=== PATIENT | female | born 1930 | race Caucasian/White ===

== ENCOUNTER 2016-11-07 13:08 | Emergency (ER) | payer OTHER, BC ==
[~2016-11-07] VITALS: Ht 172.7 cm; Wt 93.1 kg
[~2016-11-07 13:08] MED LIST: ADVAIR 250/501 DISK IH; ALBUTEROL2.5 MG/3 M IH; ATORVASTATIN 20; COUMADIN2.5 MG PO; COUMADIN3 M1 PO; COUMADIN3 MG PO; COUMADIN4 MG PO; Ceftin PO; Coumadin Protocol PO; FUROSEMIDE20 MG PO; K-DUR10 MEQ PO; LASIX40 MG PO; LEVOXYL150 MCG PO; LIPITOR20 MG PO; Lasix PO; Levaquin PO; Levothroid,Synthroid PO; Lopressor PO; METOPROLOL SUCC50 MG PO; METOPROLOL TART50 MG PO; MICRO-K,K-DUR,10 MEQ PO; POTASSIUM 10MEQ; PREMARIN VAGI42.5 GM TP; PREMARIN VAGI42.5 GM VG; PROVENTIL,2.5 MG/3 M IH; PULMICORT0.5 MG/21 IH; SPIRIVA1 INHALATI IH; Spiriva IH; WARFARIN SODIUM2 MG PO; Zithromax PO; predniSONE PO
[2016-11-07 14:09] LABS: HEMATOCRIT 36.7 % (36.0-46.0); MCH 28.1 PG (29.0-34.0); MCHC 31.3 G/DL (30.0-36.0); MCV 89.7 FL (83-99); MEAN PLAT.VOLUME 9.7 uM^3 (9.5-12.4); PLATELET COUNT 284 K/uL (156-360); RBC DIS.WIDTH-CV 13.9 % (11.8-14.6); RBC DIS.WIDTH-SD 44.8 % (39-53); RED BLOOD COUNT 4.09 M/uL (3.80-5.20)
[2016-11-07 14:19] LABS: CHLORIDE 97 mEq/L (99-109); POTASSIUM 3.6 mEq/L (3.7-5.4); SODIUM 137 mEq/L (136-147)
[2016-11-07 14:20] LABS: GLUCOSE 105 mg/dL (70-99)
[2016-11-07 14:22] LABS: ANION GAP 13 MEQ/L (2-14)
[2016-11-07 14:24] LABS: GFR ESTIMATE (CALCULATED) > 59 mL/min/
[2016-11-07 14:25] LABS: UREA NITROGEN (BUN) 13 mg/dL (9-23)
[2016-11-07 14:32] LABS: PROTHROMBIN TIME 131.2 (9.2-11.2); PTT 72.1 (25-32)
[2016-11-07 14:35] LABS: INTER. NORMALIZED RATIO 11.9
[2016-11-07 15:30] VITALS: BP 122/65
== END 2016-11-07 15:56 | disposition home or self-care (01) ==
LOC: EME 13:08
PROVIDERS: Emergency Medicine
DX: R79.1 Abnormal coagulation profile (principal); Z79.01 Long term (current) use of anticoagulants; Z86.718 Personal history of other venous thrombosis and embolism
CPT/HCPCS: 70450; 80048; 81003; 85027; 85610; 85730; 99281; 99285

== ENCOUNTER 2017-02-22 23:05 | Emergency (ER) | payer OTHER, BC ==
[~2017-02-22] VITALS: Ht 170.2 cm; Wt 86.4 kg
[2017-02-22 23:39] LABS: MCH 26.1 PG (29.0-34.0); MCV 87.1 FL (83-99); MEAN PLAT.VOLUME 8.9 uM^3 (9.5-12.4); PLATELET COUNT 415 K/uL (156-360); RBC DIS.WIDTH-CV 15.2 % (11.8-14.6); RBC DIS.WIDTH-SD 48.5 % (39-53); RED BLOOD COUNT 3.79 M/uL (3.80-5.20)
[2017-02-22 23:50] LABS: CHLORIDE 103 mEq/L (99-109); POTASSIUM 4.1 mEq/L (3.7-5.4); SODIUM 139 mEq/L (136-147)
[2017-02-22 23:52] LABS: GLUCOSE 97 mg/dL (70-99)
[2017-02-22 23:53] LABS: ANION GAP 8 MEQ/L (2-14)
[2017-02-22 23:56] LABS: GFR ESTIMATE (CALCULATED) > 59 mL/min/
[2017-02-22 23:57] LABS: UREA NITROGEN (BUN) 11 mg/dL (9-23)
[2017-02-23 00:01] LABS: TROP-I INTERPRETATION NEGATIVE; TROPONIN-I 0.01 ng/mL (0.0-0.30)
[2017-02-23 02:55] LABS: PROTHROMBIN TIME 11.9 (9.2-11.2)
[2017-02-23 02:56] LABS: INTER. NORMALIZED RATIO 1.2
[2017-02-23 03:13] LABS: ADD MIUA? YES; BILIRUBIN NEGATIVE; BLOOD NEGATIVE; COLOR AMBER ((YELLOW)); GLUCOSE (STRIP) NEGATIVE; KETONES 5; LEUKOCYTES TRACE; NITRITE NEGATIVE; PROTEIN (STRIP) 30; SPECIFIC GRAVITY 1.029 (1.000-1.030)
[2017-02-23 03:44] LABS: BACTERIA 2+ /HPF; CASTS PRESENT /LPF; EPITHELIAL CELLS 3+ /HPF; HYALINE CASTS 0-5 /LPF; MUCUS 1+ /LPF; RED BLOOD CELLS NONE SEEN /HPF (0-5); UCUL ADDED? NO; WHITE BLOOD CELLS 0-5 /HPF (0-5)
[2017-02-23 04:07] VITALS: BP 101/51
== END 2017-02-23 04:08 | disposition home or self-care (01) ==
LOC: EME 23:05
PROVIDERS: Emergency Medicine
DX: R42 Dizziness and giddiness (principal); D64.9 Anemia, unspecified; K44.9 Diaphragmatic hernia without obstruction or gangrene; I45.10 Unspecified right bundle-branch block; I48.91 Unspecified atrial fibrillation; Z79.01 Long term (current) use of anticoagulants; J45.909 Unspecified asthma, uncomplicated; I50.9 Heart failure, unspecified; I25.10 Atherosclerotic heart disease of native coronary artery without angina pectoris; Z86.711 Personal history of pulmonary embolism; Z87.891 Personal history of nicotine dependence
CPT/HCPCS: 70450; 71010; 80048; 81003; 84484; 85027; 85610; 87086; 93005; 99281; 99285